=== PATIENT | female | born 1970 | race African-American/Black ===

== ENCOUNTER 2024-04-17 19:24 | Emergency (ER) | payer OTHER ==
[2024-04-17 19:46] VITALS: BP 133/96; PULSE 101; RESP 12; TEMP 97.8; BMI 42.3
== END 2024-04-17 21:41 | disposition home or self-care (01) ==
LOC: JER 19:24
DX: T40.2X1A Poisoning by other opioids, accidental (unintentional), initial encounter (principal); R41.0 Disorientation, unspecified; M25.572 Pain in left ankle and joints of left foot; G89.29 Other chronic pain; M54.9 Dorsalgia, unspecified
CPT/HCPCS: 93005; 93010; 99283-25